=== PATIENT | female | born 1940 | race Caucasian/White ===

== ENCOUNTER 2017-05-20 17:49 | Emergency (ER) | payer OTHER ==
[~2017-05-20] VITALS: Ht 152.4 cm; Wt 71.6 kg
[~2017-05-20 17:49] MED LIST: LISI10TA PO; MECL25 PO
[2017-05-20 17:51] VITALS: BP 162/94; PULSE 95; RESP 18; TEMP 99.8; O2SAT 93
[2017-05-20] MEDS ORDERED: K-TA10TA PO (18:23)
[2017-05-20] MEDS ORDERED: SIMV20TA PO (18:23)
[2017-05-20] MEDS ORDERED: ALLO100T PO (18:23)
[2017-05-20] MEDS ORDERED: LISI20TA PO (18:23)
[2017-05-20] MEDS ORDERED: OMEP20TA93 PO (18:23)
[2017-05-20] MEDS ORDERED: ASPI81TA23 PO (18:23)
--- NOTE | 2017-05-20 18:51 | PD ---
HPI Chief Complaint: Cold / Flu Symptoms Time Seen by Provider: 18:07 Travel History International Travel<30 days: No Contact w/Intl Traveler<30days: No Traveled to known affect area: No History of Present Illness HPI The patient was seen and examined in the presence of the nurse. This patient complains of cough and congestion and sore throat and fever. She has body aches. She just got off a cruise were multiple people had the same symptoms. Severity is moderate. Duration 3 days PFSH Past Medical History Cancer: Yes (skin scalp) High Cholesterol: Yes GERD: Yes Hypertension: Yes Tetanus Vaccination: < 5 Years Influenza Vaccination: Yes ?: Not Menopausal: Yes Past Surgical History Appendectomy: Yes Gynecologic Surgery: Yes (right breast lumpectomy Nov 2016) Hysterectomy: Yes Tonsillectomy: Yes Other Surgery: Yes (right wrist) Social History Alcohol Use: Yes (wine) Tobacco Use: No Substance Use: No Allergies-Medications (Allergen,Severity, Reaction): Coded Allergies: No Known Allergies (Verified Adverse Reaction, Unknown, 05/20/17) Reported Meds & Prescriptions Reported Meds & Active Scripts Active Reported K-Tab (Potassium Chloride) 10 Meq Tab 10 Meq PO DAILY Aspirin EC (Aspirin) 81 Mg Tabdr 81 Mg PO DAILY Lisinopril-Hctz 20-12.5 Mg Tab 1 Tab PO DAILY Omeprazole 20 Mg Tab 20 Mg PO DAILY Simvastatin 20 Mg Tab 20 Mg PO HS Allopurinol Unknown Strength Tab Unknown Dose PO BID Review of Systems General / Constitutional: Positive: Fever HENT: No: Headaches Cardiovascular: No: Chest Pain or Discomfort Respiratory: Positive: Cough Gastrointestinal: No: Vomiting, Diarrhea Physical Exam Narrative RESPIRATORY: Respiratory effort unlabored, no retractions or use of accessory muscles. Breath sounds are clear and symmetric. CARDIOVASCULAR: Regular rate and rhythm without murmur. Extremities showed no edema or varicosities. Throat clear No meningeal signs Data Data Last Documented VS Vital Signs Date Time Temp Pulse Resp B/P (MAP) Pulse Ox O2 Delivery O2 Flow Rate FiO2 05/20/17 18:12 16 94 Room Air 05/20/17 17:51 99.8 95 162/94 (116) MDM Medical Decision Making Medical Screen Exam Complete: Yes Emergency Medical Condition: Yes Medical Record Reviewed: Yes Differential Diagnosis Flu syndrome, pneumonia, bronchitis Narrative Course I have reviewed the patient's electronic medical record. Presentation here is consistent with acute viral syndrome. I don't see any indication for antibiotics Supportive care discussed Diagnosis Primary Impression: Acute viral syndrome Additional Instructions: The patient was advised to follow up with their physician and return if they worsen. Med/Other Pt SpecificInfo: Other Disposition: 01 DISCHARGE HOME Condition: Stable Kevin Schmidt MD May 20, 2017 18:51
== END 2017-05-20 19:03 | disposition home or self-care (01) ==
LOC: PHED 17:49
DX: B34.9 Viral infection, unspecified (principal); I10 Essential (primary) hypertension; E78.00 Pure hypercholesterolemia, unspecified; K21.9 Gastro-esophageal reflux disease without esophagitis; Z85.828 Personal history of other malignant neoplasm of skin; Z79.899 Other long term (current) drug therapy
CPT/HCPCS: 99281